=== PATIENT | male | born 1945 | race Caucasian/White ===

== ENCOUNTER 2023-04-17 02:42 | Observation (INO) | payer MEDICARE, OTHER, SELFPAY ==
[2023-04-17] VITALS (23 sets, daily range): BP systolic 134–233; BP diastolic 48–104; PULSE 55–80; RESP 13–25; TEMP 36.6–37.1; O2SAT 92–98; BMI 29.4
[2023-04-17 03:28] LABS: Alanine Aminotransferase 25 IU/L (<50); Albumin 4.3 g/dL (3.5-5.0); Albumin Globulin Ratio 1.6 (1.0-2.8); Alkaline Phosphatase 71 U/L (38-126); Aspartate Aminotransferase 23 IU/L (17-59); BUN Creatinine Ratio 19.8 (6-22); Bilirubin Total 0.8 mg/dL (0.2-1.3); Blood Urea Nitrogen 25 mg/dL (9-20); Calcium 8.7 mg/dL (8.4-10.2); Carbon Dioxide 21 mmol/L (22-32); Chloride 109 mmol/L (98-107); Estimated Glomerular Filt Rate 59 mL/min (>60); Globulin 2.7 g/dL (1.7-4.1); Glucose 170 mg/dL (80-110); HEMOLYSIS < 15 (0-50); Lipase 104 U/L (23-300); Potassium 4.2 mmol/L (3.4-5.1); Sodium 140 mmol/L (137-145)
[2023-04-17 03:33] LABS: Add Manual Diff / Slide Review NO; Basophils Absolute Auto 0 /uL (0-100); Basophils Percent Auto 0.4 % (0-2); Eosinophils Absolute Auto 200 /uL (0-450); Eosinophils Percent Auto 1.1 % (2-4); Hematocrit 39.7 % (41-53); Hemoglobin 13.6 g/dL (13.5-17.5); Lymphocytes Absolute Auto 1500 /uL (1100-4500); Lymphocytes Percent Auto 10.6 % (25-40); Mean Corpuscular HGB Conc 34.2 % (30-36); Monocytes Absolute Auto 800 /uL (0-900); Monocytes Percent Auto 6.1 % (3-14); Neutrophils Absolute Auto 11300 /uL (1500-7000); Neutrophils Percent Auto 81.8 % (50-75); Platelet Count 185 X10^3/uL (150-400); Red Blood Cell Count 4.84 X10^6/uL (4.5-5.9); Red Cell Distribution Width 15.5 % (11.6-14.8); White Blood Cell Count 13.8 X10^3/uL (4.5-11.0)
--- NOTE | 2023-04-17 04:06 | ED_ITS ---
HPI - Abdominal Pain <Julissaisiah Lara, DO - Last Filed: 04/18/23 03:55> General Chief Complaint: Abdominal Pain Stated Complaint: Abd pain vomitting. Time Seen by Provider: 04/17/23 03:49 Source: patient and EMS Mode of arrival: EMS Limitations: no limitations History of Present Illness HPI narrative: This is a 78-year-old male with history of atrial fibrillation, prior ablation on Eliquis, hypertension, dyslipidemia. Patient presents with complaint of abdominal pain and vomiting that started this evening he describes it as suprapubic lower in his pelvic region. Had fairly sudden onset of vomiting with this discomfort. States he had been stooling regularly before. In the department he is had a large amount of diarrheal stool. No black or blood. Patient is denying any flank pain. No fevers. No chest pain or shortness of breath. No passing out. He states he was sweaty when vomiting a lot. He does have a cardiac history with prior ablation and atrial fibrillation. States only surgeries been penile implant. Allergic to penicillin. Patient lives in [place] they recently flew here 2 days ago to visit the area. They used to live in this region. Patient states he went out to lunch earlier today with a friend. No other known sick contacts patient is aware. Patient is accompanied by his . Related Data Home Medications Medication Instructions Recorded Confirmed ACETAMINOPHEN/DIPHENHYDRAMINE 1 cap PO PRN ##0 10/21/12 04/17/23 (Tylenol Pm Ex-Strength Gelcap) melatonin 3 mg tablet 3 mg PO HS ##0 10/21/12 04/17/23 atenolol 50 mg tablet 50 mg PO Q DAY ##0 11/27/12 lisinopril 40 mg tablet 40 mg PO QDAY ##0 11/27/12 04/17/23 simvastatin 20 mg tablet (Zocor) 20 mg PO HS ##0 11/27/12 04/17/23 carvedilol 12.5 mg tablet 12.5 mg PO BID 04/17/23 04/17/23 glimepiride 2 mg tablet 2 mg PO DAILY 04/17/23 04/17/23 Previous Rx's Medication Instructions Recorded hydrochlorothiazide 25 mg tablet 12.5 mg PO QDAY 90 days ##0 10/22/12 lorazepam 1 mg tablet (Ativan) 1 mg PO HSP ##10 12/07/12 Allergies Allergy/AdvReac Type Severity Reaction Status Date / Time Penicillins Allergy Mild CHILD Verified 04/17/23 11:23 REACTION Review of Systems <Julissa Lara DO - Last Filed: 04/18/23 03:55> Review of Systems ROS Unobtainable: All systems reviewed & are unremarkable except as noted in HPI and below Patient History <Julissa Lara DO - Last Filed: 04/18/23 03:55> Social History household members: spouse Smoking Status: Never smoker alcohol intake: never Smoking Status: Never smoker Substance Use Type: does not use Exam <Julissa Lara DO - Last Filed: 04/18/23 03:55> Narrative Exam Narrative: GENERAL: Alert and oriented x three, obese male in moderate distress. Patient appears quite uncomfortable. HEENT: Head normocephalic, atraumatic, EOMI, pupils reactive, face symmetric, moist mucous membranes NECK: Supple, full range of motion CARDIOVASCULAR: Regular rate and rhythm without murmurs, rubs or gallops. RESPIRATORY: Breath sounds equal bilaterally, no wheezes rales or rhonchi. No tachypnea accessory muscle use. ABDOMEN: Soft, nontender. Normoactive bowel sounds all 4 quadrants. No guarding or rebound, rigidity, no mass : No CVA tenderness EXTREMITIES: Normal range of motion, no clubbing or edema. Neurovascularly intact NEUROLOGICAL: Cranial nerves II through XII grossly intact. Moving all extremities SKIN: Warm, dry, no petechiae, no rashes or lesions. Initial Vital Signs Initial Vital Signs: Vital Signs Temperature 98 F 04/17/23 02:57 Pulse Rate 55 L 04/17/23 02:57 Respiratory Rate 16 04/17/23 02:57 Blood Pressure 137/64 04/17/23 02:57 Pulse Oximetry 92 04/17/23 02:57 Oxygen Delivery Method Room Air 04/17/23 02:57 <Ra Fernandes DO - Last Filed: 04/17/23 17:12> Initial Vital Signs Initial Vital Signs: Vital Signs Temperature 98 F 04/17/23 02:57 Pulse Rate 55 L 04/17/23 02:57 Respiratory Rate 16 04/17/23 02:57 Blood Pressure 137/64 04/17/23 02:57 Pulse Oximetry 92 04/17/23 02:57 Oxygen Delivery Method Room Air 04/17/23 02:57 Course <Julissa Lara, - Last Filed: 04/18/23 03:55> Orders Ordered: ED Orders 04/18/23 05:00 Basic Metabolic Panel Routine Complete Blood Count AUTO DIFF Routine Acetaminophen (Acetaminophen 325 Mg Tablet) 650 mg PO Q6H PRN PRN Reason: Fever/Mild Pain (1-3) Hydrocodone Bitart/Acetaminophen (Hydrocodone/Acet 5/325 Tablet) 1 tab PO Q4H PRN PRN Reason: Pain, Moderate (4-6) Hydrocodone Bitart/Acetaminophen (Hydrocodone/Acet 5/325 Tablet) 2 tab PO Q4H PRN PRN Reason: Pain, Severe (7-10) Atorvastatin Calcium (Atorvastatin 20 Mg Tablet) 10 mg PO BEDTIME [facility] Last Admin: 04/17/23 20:32 Dose: 10 mg Documented By: ESTEFANIA Carvedilol (Carvedilol 12.5 Mg Tablet) 12.5 mg PO BID [facility] Last Admin: 04/17/23 20:32 Dose: 12.5 mg Documented By: Admin: 04/17/23 14:28 Dose: 12.5 mg Documented By: CRISTINA Dextrose (Dextrose 50 % In Water 25 Gm/50 Ml Syringe) 25 gm IV PRN PRN PRN Reason: Hypoglycemia Lactated Ringer's (Lactated Ringers) 1,000 mls @ 100 mls/hr IV CONT FAITH Stop: 05/17/23 21:19 Last Admin: 04/17/23 21:40 Dose: 100 mls/hr Documented By: Infusion: 04/17/23 21:40 Dose: 100 mls/hr Documented By: Admin: 04/17/23 11:45 Dose: 100 mls/hr Documented By: BHUPENDRA Insulin Human Lispro (Insulin Lispro 100 Unit/Ml 3ml Vial) 0 unit SUBCUT ACHS [facility]; Protocol Last Admin: 04/17/23 20:30 Dose: Not Given Documented By: Admin: 04/17/23 17:09 Dose: Not Given Documented By: BHUPENDRA Lisinopril (Lisinopril 20 Mg Tablet) 40 mg PO DAILY [facility] Last Admin: 04/17/23 14:27 Dose: 40 mg Documented By: CRISTINA Melatonin (Melatonin 3 Mg Tablet) 3 mg PO BEDTIME [facility] Last Admin: 04/17/23 20:32 Dose: 3 mg Documented By: ESTEFANIA Naloxone HCl (Naloxone 0.4 Mg/Ml Vial) 0.2 mg IV Q2MIN PRN PRN Reason: Opiate Reversal Ondansetron HCl (Ondansetron 4 Mg/2 Ml Inj) 4 mg IV Q8HR PRN PRN Reason: Nausea And Vomiting Pantoprazole Sodium (Pantoprazole Dr 20 Mg Tablet) 20 mg PO 0600 [facility] Discontinued Medications Hydromorphone HCl (Hydromorphone 1 Mg Inj) 1 mg IV NOW ONE Stop: 04/17/23 08:52 Last Admin: 04/17/23 08:57 Dose: 1 mg Documented By: AT Sodium Chloride (Normal Saline 0.9%) 1,000 mls @ 1,000 mls/hr IV BOLUS ONE Stop: 04/17/23 05:14 Last Infusion: 04/17/23 05:49 Dose: 0 mls/hr Documented By: Admin: 04/17/23 04:29 Dose: 1,000 mls/hr Documented By: GC Lactated Ringer's (Lactated Ringers) 1,000 mls @ 1,000 mls/hr IV BOLUS ONE Stop: 04/17/23 08:23 Last Infusion: 04/17/23 08:47 Dose: 0 mls/hr Documented By: Admin: 04/17/23 07:36 Dose: 1,000 mls/hr Documented By: AT Morphine Sulfate (Morphine 4 Mg/Ml Inj) 4 mg IV NOW ONE Stop: 04/17/23 04:16 Last Admin: 04/17/23 04:29 Dose: 4 mg Documented By: GC Morphine Sulfate (Morphine 4 Mg/Ml Inj) 4 mg IV NOW ONE Stop: 04/17/23 05:51 Last Admin: 04/17/23 06:00 Dose: 4 mg Documented By: KIERA Ondansetron HCl (Ondansetron 4 Mg Odt) 4 mg PO NOW PRN PRN Reason: Nausea And Vomiting Ondansetron HCl (Ondansetron 4 Mg/2 Ml Inj) 4 mg IV NOW PRN PRN Reason: Nausea And Vomiting Last Admin: 04/17/23 04:29 Dose: 4 mg Documented By: KIERA Pantoprazole Sodium (Pantoprazole 40 Mg Vial) 40 mg IV NOW ONE Stop: 04/17/23 07:26 Last Admin: 04/17/23 07:36 Dose: 40 mg Documented By: AT Vital Signs Vital signs: Vital Signs - 8 hr 04/17/23 09:30 04/17/23 09:31 04/17/23 09:31 Pulse Rate 76 72 Respiratory Rate 16 15 Blood Pressure 197/85 H Pulse Oximetry 92 96 04/17/23 10:00 04/17/23 10:00 Pulse Rate 74 Respiratory Rate 13 Blood Pressure 158/70 H Pulse Oximetry 94 <Ra Fernandes, - Last Filed: 04/17/23 17:12> Orders Ordered: ED Orders 04/18/23 05:00 Basic Metabolic Panel Routine Complete Blood Count AUTO DIFF Routine Acetaminophen (Acetaminophen 325 Mg Tablet) 650 mg PO Q6H PRN PRN Reason: Fever/Mild Pain (1-3) Hydrocodone Bitart/Acetaminophen (Hydrocodone/Acet 5/325 Tablet) 1 tab PO Q4H PRN PRN Reason: Pain, Moderate (4-6) Hydrocodone Bitart/Acetaminophen (Hydrocodone/Acet 5/325 Tablet) 2 tab PO Q4H PRN PRN Reason: Pain, Severe (7-10) Atorvastatin Calcium (Atorvastatin 20 Mg Tablet) 10 mg PO BEDTIME [facility] Last Admin: 04/17/23 20:32 Dose: 10 mg Documented By: ESTEFANIA Carvedilol (Carvedilol 12.5 Mg Tablet) 12.5 mg PO BID [facility] Last Admin: 04/17/23 20:32 Dose: 12.5 mg Documented By: Admin: 04/17/23 14:28 Dose: 12.5 mg Documented By: CRISTINA Dextrose (Dextrose 50 % In Water 25 Gm/50 Ml Syringe) 25 gm IV PRN PRN PRN Reason: Hypoglycemia Lactated Ringer's (Lactated Ringers) 1,000 mls @ 100 mls/hr IV CONT [facility] Stop: 05/17/23 21:19 Last Admin: 04/17/23 21:40 Dose: 100 mls/hr Documented By: Infusion: 04/17/23 21:40 Dose: 100 mls/hr Documented By: Admin: 04/17/23 11:45 Dose: 100 mls/hr Documented By: BHUPENDRA Insulin Human Lispro (Insulin Lispro 100 Unit/Ml 3ml Vial) 0 unit SUBCUT ACHS [facility]; Protocol Last Admin: 04/17/23 20:30 Dose: Not Given Documented By: Admin: 04/17/23 17:09 Dose: Not Given Documented By: BHUPENDRA Lisinopril (Lisinopril 20 Mg Tablet) 40 mg PO DAILY [facility] Last Admin: 04/17/23 14:27 Dose: 40 mg Documented By: CIRSTINA Melatonin (Melatonin 3 Mg Tablet) 3 mg PO BEDTIME [facility] Last Admin: 04/17/23 20:32 Dose: 3 mg Documented By: ESTEFANIA Naloxone HCl (Naloxone 0.4 Mg/Ml Vial) 0.2 mg IV Q2MIN PRN PRN Reason: Opiate Reversal Ondansetron HCl (Ondansetron 4 Mg/2 Ml Inj) 4 mg IV Q8HR PRN PRN Reason: Nausea And Vomiting Pantoprazole Sodium (Pantoprazole Dr 20 Mg Tablet) 20 mg PO 0600 [facility] Discontinued Medications Hydromorphone HCl (Hydromorphone 1 Mg Inj) 1 mg IV NOW ONE Stop: 04/17/23 08:52 Last Admin: 04/17/23 08:57 Dose: 1 mg Documented By: AT Sodium Chloride (Normal Saline 0.9%) 1,000 mls @ 1,000 mls/hr IV BOLUS ONE Stop: 04/17/23 05:14 Last Infusion: 04/17/23 05:49 Dose: 0 mls/hr Documented By: Admin: 04/17/23 04:29 Dose: 1,000 mls/hr Documented By: GC Lactated Ringer's (Lactated Ringers) 1,000 mls @ 1,000 mls/hr IV BOLUS ONE Stop: 04/17/23 08:23 Last Infusion: 04/17/23 08:47 Dose: 0 mls/hr Documented By: Admin: 04/17/23 07:36 Dose: 1,000 mls/hr Documented By: AT Morphine Sulfate (Morphine 4 Mg/Ml Inj) 4 mg IV NOW ONE Stop: 04/17/23 04:16 Last Admin: 04/17/23 04:29 Dose: 4 mg Documented By: GC Morphine Sulfate (Morphine 4 Mg/Ml Inj) 4 mg IV NOW ONE Stop: 04/17/23 05:51 Last Admin: 04/17/23 06:00 Dose: 4 mg Documented By: GC Ondansetron HCl (Ondansetron 4 Mg Odt) 4 mg PO NOW PRN PRN Reason: Nausea And Vomiting Ondansetron HCl (Ondansetron 4 Mg/2 Ml Inj) 4 mg IV NOW PRN PRN Reason: Nausea And Vomiting Last Admin: 04/17/23 04:29 Dose: 4 mg Documented By: GC Pantoprazole Sodium (Pantoprazole 40 Mg Vial) 40 mg IV NOW ONE Stop: 04/17/23 07:26 Last Admin: 04/17/23 07:36 Dose: 40 mg Documented By: AT Vital Signs Vital signs: Vital Signs - 8 hr 04/17/23 09:30 04/17/23 09:31 04/17/23 09:31 Pulse Rate 76 72 Respiratory Rate 16 15 Blood Pressure 197/85 H Pulse Oximetry 92 96 04/17/23 10:00 04/17/23 10:00 Pulse Rate 74 Respiratory Rate 13 Blood Pressure 158/70 H Pulse Oximetry 94 MDM - Abdominal Pain <Julissa Lara DO - Last Filed: 04/18/23 03:55> Lab Data 04/17/23 02:49 04/17/23 02:49 Labs: Lab Results 04/17/23 04/17/23 04/17/23 Range/Units 02:49 02:49 02:49 WBC 13.8 H (4.5-11.0) X10^3/uL RBC 4.84 (4.5-5.9) X10^6/uL Hgb 13.6 (13.5-17.5) g/dL Hct 39.7 L (41-53) % MCV 82.0 (80-100) fL MCH 28.0 (26-34) PG MCHC 34.2 (30-36) % RDW 15.5 H (11.6-14.8) % Plt Count 185 (150-400) X10^3/uL Neut % (Auto) 81.8 H (50-75) % Lymph % (Auto) 10.6 L (25-40) % [place] % (Auto) 6.1 (3-14) % Eos % (Auto) 1.1 L (2-4) % Baso % (Auto) 0.4 (0-2) % Neut # (Auto) 58621 H (3321-1978) /uL Lymph # (Auto) 1500 (0984-7968) /uL [place] # (Auto) 800 (0-900) /uL Eos # (Auto) 200 (0-450) /uL Baso # (Auto) 0 (0-100) /uL Sodium 140 (137-145) mmol/L Potassium 4.2 (3.4-5.1) mmol/L Chloride 109 H (98-107) mmol/L Carbon Dioxide 21 L (22-32) mmol/L BUN 25 H (9-20) mg/dL Creatinine 1.26 H (0.66-1.25) mg/dL Estimated GFR 59 L (>60) mL/min BUN/Creatinine Ratio 19.8 (6-22) Glucose 170 H (80-110) mg/dL Lactate 1.2 (0.7-2.1) mmol/L Calcium 8.7 (8.4-10.2) mg/dL Total Bilirubin 0.8 (0.2-1.3) mg/dL AST 23 (17-59) IU/L ALT 25 (<50) IU/L Alkaline Phosphatase 71 (38-126) U/L Total Protein 7.0 (6.3-8.2) g/dL Albumin 4.3 (3.5-5.0) g/dL Globulin 2.7 (1.7-4.1) g/dL Albumin/Globulin Ratio 1.6 (1.0-2.8) Lipase 104 (23-300) U/L Procalcitonin (<0.5) ng/mL Stl C. cayetanensis PCR (Not Detect) Stool Rotavirus (PCR) (Not Detect) Stool Adenovirus (PCR) (Not Detect) Stool Astrovirus (PCR) (Not Detect) Stool Cryptosporidium PCR (Not Detect) Stl E.coli Shiga Tox PCR (Not Detect) St Sh/Enteroin Ecoli PCR (Not Detect) Stool E coli O157 PCR Stl Enterotoxigenic E PCR (Not Detect) Stool EPEC (PCR) (Not Detect) Stl E. histolytica PCR (Not Detect) Stool Giardia Lamblia PCR (Not Detect) Stool Sapovirus (PCR) (Not Detect) Stl P. shigelloides PCR (Not Detect) St Y.enterocolitica PCR (Not Detect) Stool Vibrio (PCR) (Not Detect) Stl Vibrio cholerae PCR (Not Detect) Stl Enteroaggr Ecoli PCR (Not Detect) Stl Norovirus GI/GII PCR (Not Detect) Campylobacter (PCR) (Not Detect) C. difficile Tox (PCR) (Not Detect) Salmonella (PCR) (Not Detect) 04/17/23 04/17/23 Range/Units 02:49 08:37 WBC (4.5-11.0) X10^3/uL RBC (4.5-5.9) X10^6/uL Hgb (13.5-17.5) g/dL Hct (41-53) % MCV (80-100) fL MCH (26-34) PG MCHC (30-36) % RDW (11.6-14.8) % Plt Count (150-400) X10^3/uL Neut % (Auto) (50-75) % Lymph % (Auto) (25-40) % [place] % (Auto) (3-14) % Eos % (Auto) (2-4) % Baso % (Auto) (0-2) % Neut # (Auto) (8492-2936) /uL Lymph # (Auto) (4729-2976) /uL [place] # (Auto) (0-900) /uL Eos # (Auto) (0-450) /uL Baso # (Auto) (0-100) /uL Sodium (137-145) mmol/L Potassium (3.4-5.1) mmol/L Chloride (98-107) mmol/L Carbon Dioxide (22-32) mmol/L BUN (9-20) mg/dL Creatinine (0.66-1.25) mg/dL Estimated GFR (>60) mL/min BUN/Creatinine Ratio (6-22) Glucose (80-110) mg/dL Lactate (0.7-2.1) mmol/L Calcium (8.4-10.2) mg/dL Total Bilirubin (0.2-1.3) mg/dL AST (17-59) IU/L ALT (<50) IU/L Alkaline Phosphatase (38-126) U/L Total Protein (6.3-8.2) g/dL Albumin (3.5-5.0) g/dL Globulin (1.7-4.1) g/dL Albumin/Globulin Ratio (1.0-2.8) Lipase (23-300) U/L Procalcitonin 0.04 (<0.5) ng/mL Stl C. cayetanensis PCR Not detected (Not Detect) Stool Rotavirus (PCR) Not detected (Not Detect) Stool Adenovirus (PCR) Not detected (Not Detect) Stool Astrovirus (PCR) Not detected (Not Detect) Stool Cryptosporidium PCR Not detected (Not Detect) Stl E.coli Shiga Tox PCR Not detected (Not Detect) St Sh/Enteroin Ecoli PCR Not detected (Not Detect) Stool E coli O157 PCR Not Reportable Stl Enterotoxigenic E PCR Not detected (Not Detect) Stool EPEC (PCR) Detected H (Not Detect) Stl E. histolytica PCR Not detected (Not Detect) Stool Giardia Lamblia PCR Not detected (Not Detect) Stool Sapovirus (PCR) Not detected (Not Detect) Stl P. shigelloides PCR Not detected (Not Detect) St Y.enterocolitica PCR Not detected (Not Detect) Stool Vibrio (PCR) Not detected (Not Detect) Stl Vibrio cholerae PCR Not detected (Not Detect) Stl Enteroaggr Ecoli PCR Not detected (Not Detect) Stl Norovirus GI/GII PCR Not detected (Not Detect) Campylobacter (PCR) Not detected (Not Detect) C. difficile Tox (PCR) Not detected (Not Detect) Salmonella (PCR) Not detected (Not Detect) Point of care testing: Urine Dip Bedside Urine Glucose Negative Bedside Urine Bilirubin - Negative Bedside Urine Ketone - Negative Urine Specific [place] 1.015 Bedside Urine Occult Blood - Negative Bedside Urine pH 5.5 Bedside Urine Protein - Negative Bedside Urine Urobilinogen - Negative Bedside Urine Nitrite - Negative Bedside Urine Leukocytes - Negative Esterase Imaging Data CT scan - abdomen/pelvis: Radiologist's Impression: Lobulated heterogeneous enlarged prostate. Thickened colon particularly mid transverse to distal descending where there is pericolonic stranding compatible with colitis. ECG Data Attestation: I personally reviewed and interpreted this ECG as follows: [facility] Narrative Medical decision making narrative: This is a 78-year-old male with fairly sudden onset of vomiting, lower pelvic pain now has developed diarrhea. Patient is afebrile, has a white count of 13, platelets are appropriate hemoglobin is 13. No black or bloody stool. Creatinine is 1.26 no priors for baseline. CO2 is 21, BUN 25, glucose 170 with LFTs otherwise being appropriate. Plan to add on protocol, lactate and cultures as CO2 is low. Patient is bradycardic but is on medication that would blunt his cardiac response. CT abdomen pelvis to evaluate for infection, diverticulitis, partial bowel obstruction versus other causes. He has had recent travel infectious causes are also potential. CT abdomen pelvis, shows thickened colon particularly mid transverse to distal descending with pericolonic stranding compatible with colitis. Lobulated heterogenous and large prostate. Discussed with patient. Discussed follow-up with prostate. He states he does get his prostate checked and PSAs regularly but discussed he should probably sure this imaging and information with his physician. Patient given fluids, pain medication and antinausea medication: Feeling somewhat improved but still hurting. Attempting oral challenge. [0700] (Dom) Patient received in sign out from [poppy]. I have reviewed the clinical course and performed an independent history and physical exam. Patient continues to have pain in his now receiving his 3rd round of IV pain medications. Furthermore he is not tolerating orals and for these reasons the patient is an appropriate candidate for hospitalization. <Ra Fernandes, DO - Last Filed: 04/17/23 17:12> Lab Data Labs: Lab Results 04/17/23 04/17/23 04/17/23 Range/Units 02:49 02:49 02:49 WBC 13.8 H (4.5-11.0) X10^3/uL RBC 4.84 (4.5-5.9) X10^6/uL Hgb 13.6 (13.5-17.5) g/dL Hct 39.7 L (41-53) % MCV 82.0 (80-100) fL MCH 28.0 (26-34) PG MCHC 34.2 (30-36) % RDW 15.5 H (11.6-14.8) % Plt Count 185 (150-400) X10^3/uL Neut % (Auto) 81.8 H (50-75) % Lymph % (Auto) 10.6 L (25-40) % [place] % (Auto) 6.1 (3-14) % Eos % (Auto) 1.1 L (2-4) % Baso % (Auto) 0.4 (0-2) % Neut # (Auto) 14671 H (1071-4800) /uL Lymph # (Auto) 1500 (5296-2436) /uL [place] # (Auto) 800 (0-900) /uL Eos # (Auto) 200 (0-450) /uL Baso # (Auto) 0 (0-100) /uL Sodium 140 (137-145) mmol/L Potassium 4.2 (3.4-5.1) mmol/L Chloride 109 H (98-107) mmol/L Carbon Dioxide 21 L (22-32) mmol/L BUN 25 H (9-20) mg/dL Creatinine 1.26 H (0.66-1.25) mg/dL Estimated GFR 59 L (>60) mL/min BUN/Creatinine Ratio 19.8 (6-22) Glucose 170 H (80-110) mg/dL Lactate 1.2 (0.7-2.1) mmol/L Calcium 8.7 (8.4-10.2) mg/dL Total Bilirubin 0.8 (0.2-1.3) mg/dL AST 23 (17-59) IU/L ALT 25 (<50) IU/L Alkaline Phosphatase 71 (38-126) U/L Total Protein 7.0 (6.3-8.2) g/dL Albumin 4.3 (3.5-5.0) g/dL Globulin 2.7 (1.7-4.1) g/dL Albumin/Globulin Ratio 1.6 (1.0-2.8) Lipase 104 (23-300) U/L Procalcitonin (<0.5) ng/mL Stl C. cayetanensis PCR (Not Detect) Stool Rotavirus (PCR) (Not Detect) Stool Adenovirus (PCR) (Not Detect) Stool Astrovirus (PCR) (Not Detect) Stool Cryptosporidium PCR (Not Detect) Stl E.coli Shiga Tox PCR (Not Detect) St Sh/Enteroin Ecoli PCR (Not Detect) Stool E coli O157 PCR Stl Enterotoxigenic E PCR (Not Detect) Stool EPEC (PCR) (Not Detect) Stl E. histolytica PCR (Not Detect) Stool Giardia Lamblia PCR (Not Detect) Stool Sapovirus (PCR) (Not Detect) Stl P. shigelloides PCR (Not Detect) St Y.enterocolitica PCR (Not Detect) Stool Vibrio (PCR) (Not Detect) Stl Vibrio cholerae PCR (Not Detect) Stl Enteroaggr Ecoli PCR (Not Detect) Stl Norovirus GI/GII PCR (Not Detect) Campylobacter (PCR) (Not Detect) C. difficile Tox (PCR) (Not Detect) Salmonella (PCR) (Not Detect) 04/17/23 04/17/23 Range/Units 02:49 08:37 WBC (4.5-11.0) X10^3/uL RBC (4.5-5.9) X10^6/uL Hgb (13.5-17.5) g/dL Hct (41-53) % MCV (80-100) fL MCH (26-34) PG MCHC (30-36) % RDW (11.6-14.8) % Plt Count (150-400) X10^3/uL Neut % (Auto) (50-75) % Lymph % (Auto) (25-40) % [place] % (Auto) (3-14) % Eos % (Auto) (2-4) % Baso % (Auto) (0-2) % Neut # (Auto) (9562-1650) /uL Lymph # (Auto) (0316-1384) /uL [place] # (Auto) (0-900) /uL Eos # (Auto) (0-450) /uL Baso # (Auto) (0-100) /uL Sodium (137-145) mmol/L Potassium (3.4-5.1) mmol/L Chloride (98-107) mmol/L Carbon Dioxide (22-32) mmol/L BUN (9-20) mg/dL Creatinine (0.66-1.25) mg/dL Estimated GFR (>60) mL/min BUN/Creatinine Ratio (6-22) Glucose (80-110) mg/dL Lactate (0.7-2.1) mmol/L Calcium (8.4-10.2) mg/dL Total Bilirubin (0.2-1.3) mg/dL AST (17-59) IU/L ALT (<50) IU/L Alkaline Phosphatase (38-126) U/L Total Protein (6.3-8.2) g/dL Albumin (3.5-5.0) g/dL Globulin (1.7-4.1) g/dL Albumin/Globulin Ratio (1.0-2.8) Lipase (23-300) U/L Procalcitonin 0.04 (<0.5) ng/mL Stl C. cayetanensis PCR Not detected (Not Detect) Stool Rotavirus (PCR) Not detected (Not Detect) Stool Adenovirus (PCR) Not detected (Not Detect) Stool Astrovirus (PCR) Not detected (Not Detect) Stool Cryptosporidium PCR Not detected (Not Detect) Stl E.coli Shiga Tox PCR Not detected (Not Detect) St Sh/Enteroin Ecoli PCR Not detected (Not Detect) Stool E coli O157 PCR Not Reportable Stl Enterotoxigenic E PCR Not detected (Not Detect) Stool EPEC (PCR) Detected H (Not Detect) Stl E. histolytica PCR Not detected (Not Detect) Stool Giardia Lamblia PCR Not detected (Not Detect) Stool Sapovirus (PCR) Not detected (Not Detect) Stl P. shigelloides PCR Not detected (Not Detect) St Y.enterocolitica PCR Not detected (Not Detect) Stool Vibrio (PCR) Not detected (Not Detect) Stl Vibrio cholerae PCR Not detected (Not Detect) Stl Enteroaggr Ecoli PCR Not detected (Not Detect) Stl Norovirus GI/GII PCR Not detected (Not Detect) Campylobacter (PCR) Not detected (Not Detect) C. difficile Tox (PCR) Not detected (Not Detect) Salmonella (PCR) Not detected (Not Detect) Point of care testing: Urine Dip Bedside Urine Glucose Negative Bedside Urine Bilirubin - Negative Bedside Urine Ketone - Negative Urine Specific [place] 1.015 Bedside Urine Occult Blood - Negative Bedside Urine pH 5.5 Bedside Urine Protein - Negative Bedside Urine Urobilinogen - Negative Bedside Urine Nitrite - Negative Bedside Urine Leukocytes - Negative Esterase MDM Narrative Medical decision making narrative: This is a 78-year-old male with fairly sudden onset of vomiting, lower pelvic pain now has developed diarrhea. Patient is afebrile, has a white count of 13, platelets are appropriate hemoglobin is 13. No black or bloody stool. Creatinine is 1.26 no priors for baseline. CO2 is 21, BUN 25, glucose 170 with LFTs otherwise being appropriate. Plan to add on protocol, lactate and cultures as CO2 is low. Patient is bradycardic but is on medication that would blunt his cardiac response. CT abdomen pelvis to evaluate for infection, diverticulitis, partial bowel obstruction versus other causes. He has had recent travel infectious causes are also potential. CT abdomen pelvis, shows thickened colon particularly mid transverse to distal descending with pericolonic stranding compatible with colitis. Lobulated heterogenous and large prostate. Discussed with patient. Discussed follow-up with prostate. He states he does get his prostate checked and PSAs regularly but discussed he should probably sure this imaging and information with his physician. Patient given fluids, pain medication and antinausea medication: Feeling somewhat improved but still hurting. [0700] (Dom) Patient received in sign out from [poppy]. I have reviewed the clinical course and performed an independent history and physical exam. Patient continues to have pain in his now receiving his 3rd round of IV pain medications. Furthermore he is not tolerating orals and for these reasons the patient is an appropriate candidate for hospitalization. Discharge Plan Departure Patient Disposition: Admitted as Observation Clinical Impression: Colitis, Abdominal pain, Vomiting Admit Date/Time: 04/17/23 10:12 Admit Provider: Amita Suarez
--- NOTE | 2023-04-17 04:15 | DI.CT.S_ITS ---
PROCEDURE: CT ABDOMEN PELVIS W CON INDICATIONS: suprapubic abd pain, v, diarrhea TECHNIQUE: After the administration of IV contrast, axial sections were acquired from the lung bases to the pubic symphysis. Coronal and sagittal reformats were performed. For radiation dose reduction, the following was used: automated exposure control, adjustment of mA and/or kV according to patient size. COMPARISON: None. FINDINGS: Image quality: Excellent. Lung bases: Scars and in the atelectasis in lingula. Small hiatal hernia and mild concentric thickening at the gastroesophageal junction. A calcified granuloma in the right lung base. Heart: No significant findings. ABDOMEN: Liver: Normal size. Mild hepatic steatosis. Gallbladder: Unremarkable. Biliary ducts: Unremarkable. Pancreas: Unremarkable. Spleen: Unremarkable. Adrenal Glands: Unremarkable. Kidneys and Ureters: Normal size and symmetrical enhancement. Small cortical low-density nodules bilaterally are most likely renal cysts. Stomach and Bowel: Stomach, small bowel loops, and colon are normal in caliber. There is diffuse colonic wall thickening involving the transverse colon, splenic flexure, descending and sigmoid colon consistent with colitis. Peritoneum: No abnormal intraperitoneal fluid. No free air. Ventral Wall: No hernia. Abdominal Nodes: No retroperitoneal or mesenteric adenopathy by size criteria. Vessels: Aorta and inferior vena cava are normal in size. Moderate atherosclerotic calcifications. PELVIS: Pelvic Organs: Prostate is enlarged. 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 Bladder: Unremarkable. Pelvic Nodes: No enlarged lymph nodes. Miscellaneous: Small fat containing right inguinal hernia. Bones: Unremarkable. IMPRESSION: 1. Diffuse colitis involving the transverse colon, splenic flexure, descending and sigmoid colon. No free air or abscess. 2. Small hiatal hernia. There is mild concentric thickening of the distal esophagus at the gastroesophageal junction. Consider esophagram or EGD for follow-up. 3. Bilateral renal cortical cysts. No stones or hydronephrosis. 4. Enlarged prostate. No significant discrepancy with the director of business applications radiology preliminary report. Dictated by: Momo Rawls M.D. on 04/17/2023 at 7:57 Approved by: Momo Rawls M.D. on 04/17/2023 at 8:03
[2023-04-17 04:26] LABS: Lactate (Lactic Acid) 1.2 mmol/L (0.7-2.1)
[2023-04-17] MEDS: MORPHINE 4 MG/ML INJ IV ×2 (04:29→06:00)
[2023-04-17] MEDS: SODIUM CHLORIDE 0.9% 1,000 ML 1000 ML IV (04:29)
[2023-04-17] MEDS: ONDANSETRON 4 MG/2 ML INJ IV (04:29)
[2023-04-17 04:43] LABS: Procalcitonin 0.04 ng/mL (<0.5)
[2023-04-17] MEDS: PANTOPRAZOLE 40 MG VIAL IV (07:36)
[2023-04-17] MEDS: LACTATED RINGERS 1,000 ML 1000 ML IV (07:36)
[2023-04-17] MEDS: HYDROMORPHONE 1 MG INJ IV (08:57)
[2023-04-17 10:20] LABS: Adenovirus F 40/41 Not Detected (Not Detect); Astrovirus Not Detected (Not Detect); Campylobacter Not Detected (Not Detect); Clostridium difficile toxin AB Not Detected (Not Detect); Cryptosporidium Not Detected (Not Detect); Cyclospora cayetanensis Not Detected (Not Detect); Entamoeba histolytica Not Detected (Not Detect); Enteroaggregative E.coli Not Detected (Not Detect); Enteropathogenic E.coli Detected (Not Detect); Enterotoxigenic E.coli It/st Not Detected (Not Detect); Giardia lamblia Not Detected (Not Detect); Norovirus GI/GII Not Detected (Not Detect); Plesiomonsa shigelloides Not Detected (Not Detect); Rotavirus A Not Detected (Not Detect); Salmonella Not Detected (Not Detect); Sapovirus Not Detected (Not Detect); Shiga-like toxin-prod E.coli Not Detected (Not Detect); Shigella/Enteroinvasive E.coli Not Detected (Not Detect); Vibrio Not Detected (Not Detect); Vibrio cholerae Not Detected (Not Detect); Yersinia enterocolitica Not Detected (Not Detect)
--- NOTE | 2023-04-17 11:05 | PC.NURSE ---
Per prior shift report, PO challenge was initiated. Upon taking over, pt reported vomitting and diarrhea immediately after, Dr. Fernandes notified. Pt reports continuous bowel movements and abdominal discomfort, states with the slightest movement he has a bowel movement. Bowel movements are liquid and loose, brown in color. Pt reports too uncomfortable to sit up on commode, multiple bed changes and amira care provided. Pt intermittently falling asleep.
[2023-04-17] MEDS: LACTATED RINGERS 1,000 ML 100 ML IV ×2 (11:45→21:40)
--- NOTE | 2023-04-17 12:08 | PC.NURSE ---
Addendum entered by Mayte Treviño R.N. 04/17/23 15:29: Patient had a lose bowel movement in the commode. Explained to patient that he needs to use the bathroom or bedside commode when he needs to have a bowel movement. He is more than capable of doing this. Will have this discussion again when patient has to use the bathroom. If he has an accident, then we will clean him up. Original Note: Assess- Patient is alert and oriented x4. He has not had a lose stool since getting up to his room at 1110. He is lying on his left side. Drapes dimmed and he is resting comfortably. LR infusing at 100cc/hr. Patient denies nausea or emesis at this time. Will recheck on patient in an hour.
--- NOTE | 2023-04-17 12:33 | P.HP_ITS ---
History of Present Illness History of Present Illness Chief complaint: Abd pain vomitting. Narrative: 78-year-old gentleman with hypertension, hyperlipidemia, diabetes mellitus type 2 on oral medications, history of atrial fibrillation with previous ablation on chronic anticoagulation who presented to the emergency department with acute onset of lower abdominal pain, nausea and vomiting. Reports he is visiting from [place] and was out to breakfast and lunch both with a friend. He states after breakfast he and his friend walked the beach and he felt fine. They subsequently went for lunch and had burgers and fries. He states he again felt fine until last evening when he developed acute onset of severe lower abdominal pain. States whenever his abdomen cramped he had emesis. Ultimately presented to the emergency department for further evaluation. States he did not have any diarrhea until he got to the emergency department. He states he had significant amounts of diarrhea after arrival. Anytime he took in fluids, it seemed to trigger further diarrhea. He had not noticed any blood in his stool. He can not recall where he went to eat, but notes his has reached out to his friend to see if the friend is ill. In the emergency department, he received Zofran x2 doses, 1 L of normal saline, 1 L of lactated Ringer's, 2 doses of IV morphine 4 mg and 1 dose of Dilaudid 1 mg. He additionally received IV Protonix 40 mg. Earlier this morning, blood pressures were up to 233/104 which was felt to be secondary to pain. Vital signs have otherwise been stable. He has been afebrile. White blood cell count was 13.8, hemoglobin 13.6, hematocrit 39.7, platelets 185. Chemistry panel reveals sodium 140, potassium 4.2, chloride 109, bicarb 21, BUN 25, creatinine 1.26, glucose 170. LFTs were within normal limits. Lactate was normal at 1.2. Lipase 104. Procalcitonin 0.04. Stool studies were positive for enteropathogenic E coli. Abdominal pelvic CT revealed diffuse colitis involving the transverse colon, splenic flexure, descending and sigmoid colon. No free air or abscess. There was a small hiatal hernia. Mild concentric thickening of the distal esophagus at the GE junction. Recommendation for esophagram or EGD for follow-up. Enlarged prostate was noted. Bilateral renal cortical cysts without stones or hydronephrosis was noted Due to ongoing difficulties with pain and diarrhea, admission was recommended. Patient reports currently he is feeling very thirsty, he is having some difficulty remembering details from the last 24 hours, but denies any significant abdominal pain. [facility] Social History household members: spouse Smoking Status: Never smoker alcohol intake: never Comment: Past medical history: Atrial fibrillation status post ablation Chronic anticoagulation with Eliquis Hypertension Hyperlipidemia Diabetes mellitus type 2 Family history: He reports most of his father siblings as well as his father secondary to malignancies Mother had diabetes and from heart disease Social history: Patient and his used to live in the [facility] but relocated to [place] in 2016. They are here visiting friends. He reports a remote history of tobacco use. No significant alcohol use. Meds Home Medications and Allergies Home Medications Medication Instructions Recorded Confirmed Type ACETAMINOPHEN/DIPHENHYDRAMINE 1 cap PO PRN ##0 10/21/12 04/17/23 History (Tylenol Pm Ex-Strength Gelcap) melatonin 3 mg tablet 3 mg PO HS ##0 10/21/12 04/17/23 History hydrochlorothiazide 25 mg tablet 12.5 mg PO QDAY 90 days ##0 10/22/12 Rx atenolol 50 mg tablet 50 mg PO Q DAY ##0 11/27/12 History lisinopril 40 mg tablet 40 mg PO QDAY ##0 11/27/12 04/17/23 History simvastatin 20 mg tablet (Zocor) 20 mg PO HS ##0 11/27/12 04/17/23 History lorazepam 1 mg tablet (Ativan) 1 mg PO HSP ##10 12/07/12 Rx carvedilol 12.5 mg tablet 12.5 mg PO BID 04/17/23 04/17/23 History glimepiride 2 mg tablet 2 mg PO DAILY 04/17/23 04/17/23 History Allergies Allergy/AdvReac Type Severity Reaction Status Date / Time Penicillins Allergy Mild CHILD Verified 04/17/23 11:23 REACTION Review of Systems Review of Systems Narrative: All other systems were reviewed negative Exam Vital Signs (past 8 hours): - 04/17/23 07:00 04/17/23 07:01 04/17/23 07:01 Temperature Pulse Rate 71 78 Respiratory Rate 18 19 Blood Pressure 233/104 H Pulse Oximetry 96 97 Oxygen Delivery Method Room Air Oxygen Flow Rate 04/17/23 07:30 04/17/23 07:31 04/17/23 07:31 Temperature Pulse Rate 69 69 Respiratory Rate 17 17 Blood Pressure 218/84 H Pulse Oximetry 96 97 Oxygen Delivery Method Oxygen Flow Rate 04/17/23 07:42 04/17/23 07:42 04/17/23 08:00 Temperature Pulse Rate 80 72 Respiratory Rate 19 20 Blood Pressure 223/100 H Pulse Oximetry 97 97 Oxygen Delivery Method Room Air Oxygen Flow Rate 04/17/23 08:30 04/17/23 08:34 04/17/23 09:00 Temperature Pulse Rate 78 76 75 Respiratory Rate 17 25 H 18 Blood Pressure Pulse Oximetry 98 97 98 Oxygen Delivery Method Oxygen Flow Rate 04/17/23 09:01 04/17/23 09:01 04/17/23 09:30 Temperature Pulse Rate 74 76 Respiratory Rate 16 16 Blood Pressure 213/91 H Pulse Oximetry 97 92 Oxygen Delivery Method Room Air Oxygen Flow Rate 04/17/23 09:31 04/17/23 09:31 04/17/23 10:00 Temperature Pulse Rate 72 Respiratory Rate 15 Blood Pressure 197/85 H 158/70 H Pulse Oximetry 96 Oxygen Delivery Method Oxygen Flow Rate 04/17/23 10:00 04/17/23 10:30 04/17/23 10:30 Temperature Pulse Rate 74 73 Respiratory Rate 13 14 Blood Pressure 152/67 H Pulse Oximetry 94 95 Oxygen Delivery Method Room Air Oxygen Flow Rate 04/17/23 11:27 Temperature 98.3 F Pulse Rate 75 Respiratory Rate 18 Blood Pressure 138/60 Pulse Oximetry 98 Oxygen Delivery Method Oxygen Flow Rate 0 Oxygen Delivery Method Room Air Oxygen Flow Rate 0 Narrative Exam Narrative: GEN: Moderately ill-appearing elderly male, Alert and oriented x3, somewhat forgetful, no acute distress HEENT: Normocephalic, face symmetric, pupils equal round reactive to light, extraocular movements intact, sclerae anicteric, conjunctiva clear, nares patent, oropharynx reveals an intact soft and hard palate with moist mucous membranes, dentition is fair NECK: Supple, no lymphadenopathy, thyroid without enlargement or nodularity, carotids no bruits CHEST: Respiratory excursions symmetric, clear to auscultation bilaterally CV: Regular rate and rhythm, no murmurs, rubs, gallops, PMI can not be palpated ABD: Soft, nontender, nondistended, bowel sounds present in all 4 quadrants, body habitus limits exam EXTR: Warm, well perfused, no clubbing/cyanosis/edema SKIN: Warm and dry, without rash, very durant NEURO: Alert and oriented x3, grossly intact PSYCH: Mood and affect is within normal limits, judgment and insight are appropriate Objective Labs 04/17/23 02:49 04/17/23 02:49 Labs: Laboratory Results - last 24 hr 04/17/23 04/17/23 04/17/23 02:49 02:49 02:49 WBC 13.8 H RBC 4.84 Hgb 13.6 Hct 39.7 L MCV 82.0 MCH 28.0 MCHC 34.2 RDW 15.5 H Plt Count 185 Neut % (Auto) 81.8 H Lymph % (Auto) 10.6 L [place] % (Auto) 6.1 Eos % (Auto) 1.1 L Baso % (Auto) 0.4 Neut # (Auto) 17963 H Lymph # (Auto) 1500 [place] # (Auto) 800 Eos # (Auto) 200 Baso # (Auto) 0 Sodium 140 Potassium 4.2 Chloride 109 H Carbon Dioxide 21 L BUN 25 H Creatinine 1.26 H Estimated GFR 59 L BUN/Creatinine Ratio 19.8 Glucose 170 H Lactate 1.2 Calcium 8.7 Total Bilirubin 0.8 AST 23 ALT 25 Alkaline Phosphatase 71 Total Protein 7.0 Albumin 4.3 Globulin 2.7 Albumin/Globulin Ratio 1.6 Lipase 104 Procalcitonin Stl C. cayetanensis PCR Stool Rotavirus (PCR) Stool Adenovirus (PCR) Stool Astrovirus (PCR) Stool Cryptosporidium PCR Stl E.coli Shiga Tox PCR St Sh/Enteroin Ecoli PCR Stool E coli O157 PCR Stl Enterotoxigenic E PCR Stool EPEC (PCR) Stl E. histolytica PCR Stool Giardia Lamblia PCR Stool Sapovirus (PCR) Stl P. shigelloides PCR St Y.enterocolitica PCR Stool Vibrio (PCR) Stl Vibrio cholerae PCR Stl Enteroaggr Ecoli PCR Stl Norovirus GI/GII PCR Campylobacter (PCR) C. difficile Tox (PCR) Salmonella (PCR) 04/17/23 04/17/23 02:49 08:37 WBC RBC Hgb Hct MCV MCH MCHC RDW Plt Count Neut % (Auto) Lymph % (Auto) [place] % (Auto) Eos % (Auto) Baso % (Auto) Neut # (Auto) Lymph # (Auto) [place] # (Auto) Eos # (Auto) Baso # (Auto) Sodium Potassium Chloride Carbon Dioxide BUN Creatinine Estimated GFR BUN/Creatinine Ratio Glucose Lactate Calcium Total Bilirubin AST ALT Alkaline Phosphatase Total Protein Albumin Globulin Albumin/Globulin Ratio Lipase Procalcitonin 0.04 Stl C. cayetanensis PCR Not detected Stool Rotavirus (PCR) Not detected Stool Adenovirus (PCR) Not detected Stool Astrovirus (PCR) Not detected Stool Cryptosporidium PCR Not detected Stl E.coli Shiga Tox PCR Not detected St Sh/Enteroin Ecoli PCR Not detected Stool E coli O157 PCR Not Reportable Stl Enterotoxigenic E PCR Not detected Stool EPEC (PCR) Detected H Stl E. histolytica PCR Not detected Stool Giardia Lamblia PCR Not detected Stool Sapovirus (PCR) Not detected Stl P. shigelloides PCR Not detected St Y.enterocolitica PCR Not detected Stool Vibrio (PCR) Not detected Stl Vibrio cholerae PCR Not detected Stl Enteroaggr Ecoli PCR Not detected Stl Norovirus GI/GII PCR Not detected Campylobacter (PCR) Not detected C. difficile Tox (PCR) Not detected Salmonella (PCR) Not detected Assessment & Plan Assessment & Plan narrative: 1. Infectious colitis, enteropathogenic E coli Likely contracted when he was out to eat yesterday. He had acute onset with an hours. CT scan consistent with diffuse colitis. Stool studies positive for enteropathogenic E coli. At this time, there is no clear indication for antibiotics. Will continue supportive care with IV fluids, antiemetics, and pain medications as needed. Will start a clear liquid diet and advance as tolerated. Will place on contact precautions. 2. Leukocytosis Secondary to infectious colitis 3. Acute metabolic acidosis Secondary to GI losses. Will hydrate and monitor. 4. Acute metabolic encephalopathy Patient does seem mildly confused, perhaps a bit forgetful. However, he reorients quickly. He has been awake most of the night and has received multipl e doses of pain medications. Will monitor. Anticipate he will clear quickly. 5. Diabetes mellitus type [address] on fingersticks and sliding scale. 6. Hypertension Patient had severe hypertension earlier this morning, likely related to pain. Blood pressures have significantly improved with his most recent blood pressure being 138/60. Will resume his usual home medications. 7. Presumed ANIA Patient presents with a BUN elevated at 25, creatinine 1.26. Anticipate this will correct with hydration. 8. Chronic anticoagulation for history of atrial fibrillation status post ablation He is reportedly on Eliquis. Await medication reconciliation and restart once confirmed. 9. Distal esophageal thickening at the GE junction Should pursue EGD on an outpatient basis. 10. Enlarged prostate Noted on imaging. He does not endorse symptoms 11. Bilateral renal cortical cysts Unclear if this is known from baseline. It was noted on imaging Code status Full Prophylaxis Hepatoma score. Awaiting confirmation of chronic anticoagulation Disposition Admit under observation status. If patient is significantly improved by tomorrow, will likely be able to discharge home. Quality VTE Deep Vein Thrombosis/Pulmonary Embolism Present on Admission: No
[2023-04-17] MEDS: lisinopriL 20 MG TABLET 40 MG PO (14:27)
[2023-04-17] MEDS: carvediloL 12.5 MG TABLET PO ×2 (14:28→20:32)
[2023-04-17] MEDS: ATORVASTATIN 20 MG TABLET 10 MG PO (20:32)
[2023-04-17] MEDS: MELATONIN 3 MG TABLET PO (20:32)
[2023-04-18 05:10] LABS: BUN Creatinine Ratio 16.4 (6-22); Blood Urea Nitrogen 19 mg/dL (9-20); Calcium 7.6 mg/dL (8.4-10.2); Carbon Dioxide 22 mmol/L (22-32); Chloride 111 mmol/L (98-107); Estimated Glomerular Filt Rate > 60 mL/min (>60); Glucose 110 mg/dL (80-110); HEMOLYSIS < 15 (0-50); Potassium 3.6 mmol/L (3.4-5.1); Sodium 137 mmol/L (137-145)
[2023-04-18 05:19] LABS: Add Manual Diff / Slide Review NO; Basophils Absolute Auto 0 /uL (0-100); Basophils Percent Auto 0.4 % (0-2); Eosinophils Absolute Auto 400 /uL (0-450); Eosinophils Percent Auto 4.2 % (2-4); Hematocrit 32.3 % (41-53); Hemoglobin 11.1 g/dL (13.5-17.5); Lymphocytes Absolute Auto 1900 /uL (1100-4500); Lymphocytes Percent Auto 22.3 % (25-40); Mean Corpuscular HGB Conc 34.5 % (30-36); Mean Corpuscular Hemoglobin 28.6 PG (26-34); Mean Corpuscular Volume 82.7 fL (80-100); Monocytes Absolute Auto 800 /uL (0-900); Monocytes Percent Auto 9.6 % (3-14); Neutrophils Absolute Auto 5400 /uL (1500-7000); Neutrophils Percent Auto 63.5 % (50-75); Platelet Count 142 X10^3/uL (150-400); Red Cell Distribution Width 15.5 % (11.6-14.8); White Blood Cell Count 8.6 X10^3/uL (4.5-11.0)
[2023-04-18 06:00] VITALS: BP 164/53; PULSE 68; RESP 19; TEMP 36.5; O2SAT 98
[2023-04-18] MEDS: PANTOPRAZOLE DR 20 MG TABLET PO (06:10)
[2023-04-18 07:00] VITALS: O2SAT 96
--- NOTE | 2023-04-18 08:52 | PM.DS.1 ---
History of Present Illness History of Present Illness Chief complaint: Abd pain vomitting. Narrative: 78-year-old gentleman with hypertension, hyperlipidemia, diabetes mellitus type 2 on oral medications, history of atrial fibrillation with previous ablation on chronic anticoagulation who presented to the emergency department with acute onset of lower abdominal pain, nausea and vomiting.? Reports he is visiting from [place] and was out to breakfast and lunch both with a friend.? He states after breakfast he and his friend walked the beach and he felt fine.? They subsequently went for lunch and had burgers and fries.? He states he again felt fine until last evening when he developed acute onset of severe lower abdominal pain.? States whenever his abdomen cramped he had emesis.? Ultimately presented to the emergency department for further evaluation.? States he did not have any diarrhea until he got to the emergency department.? He states he had significant amounts of diarrhea after arrival.? Anytime he took in fluids, it seemed to trigger further diarrhea.? He had not noticed any blood in his stool.? He can not recall where he went to eat, but notes his has reached out to his friend to see if the friend is ill. In the emergency department, he received Zofran x2 doses, 1 L of normal saline, 1 L of lactated Ringer's, 2 doses of IV morphine 4 mg and 1 dose of Dilaudid 1 mg.? He additionally received IV Protonix 40 mg.? Earlier this morning, blood pressures were up to 233/104 which was felt to be secondary to pain.? Vital signs have otherwise been stable.? He has been afebrile.? White blood cell count was 13.8, hemoglobin 13.6, hematocrit 39.7, platelets 185.? Chemistry panel reveals sodium 140, potassium 4.2, chloride 109, bicarb 21, BUN 25, creatinine 1.26, glucose 170.? LFTs were within normal limits.? Lactate was normal at 1.2.? Lipase 104.? Procalcitonin 0.04.? Stool studies were positive for enteropathogenic E coli.? Abdominal pelvic CT revealed diffuse colitis involving the transverse colon, splenic flexure, descending and sigmoid colon.? No free air or abscess.? There was a small hiatal hernia.? Mild concentric thickening of the distal esophagus at the GE junction.? Recommendation for esophagram or EGD for follow-up.? Enlarged prostate was noted.? Bilateral renal cortical cysts without stones or hydronephrosis was noted Due to ongoing difficulties with pain and diarrhea, admission was recommended. Discharge Providers Provider Date of admission: 04/17/23 10:12 Discharge Date: 04/18/23 Primary care physician: Doctor Shonna MD Discharge provider: Sidney Rachel MD Summary Hospital Course Discharge Diagnosis: 1. Acute enteropathogenic E.coli gastroenteritis 2. Acute metabolic acidosis, resolved 3. Acute metabolic encephalopathy, resolved 4. ANIA due to acute dehydration, resolved 5. Distal esophageal thickening on CT 6. Bilateral renal cysts 7. Type 2 diabetes 8. Hypertension 9. Chronic anticoagulation for afib 10. Enlarged prostate noted on CT Hospital Course: Pt was admitted and managed conservatively. Following morning his symptoms are much better with considerable improvement in diarrhea frequency and volume. He had mild confusion which cleared up. He is not having any nausea or abdominal pain. Electrolytes are normal. He will f/u with PCP on CT finding of distal esophageal thickening (differential includes due to vomiting, silent reflux, malignancy). Status at Discharge Cognitive/behavioral status at discharge: oriented Functional status at discharge: independent ambulation Overall status at discharge: patient is progressing back to baseline Time Spent with Patient Time spent: Less than 30 minutes Exam Vital Signs (past 8 hours): - 04/18/23 06:00 04/18/23 07:00 Temperature 97.7 F Pulse Rate 68 Respiratory Rate 19 Blood Pressure 164/53 H Pulse Oximetry 98 96 Oxygen Delivery Method Room Air Oxygen Flow Rate 0 Oxygen Delivery Method Room Air Oxygen Flow Rate 0 Narrative Exam Narrative: Gen: alert, NAD Lungs: clear Abd: soft, nt Ext: no edema Neuro: nl speech and affect Objective Labs 04/18/23 04:23 04/18/23 04:23 Labs: Laboratory Results - last 24 hr 04/17/23 04/18/23 04/18/23 08:37 04:23 04:23 WBC 8.6 RBC 3.90 L Hgb 11.1 L Hct 32.3 L MCV 82.7 MCH 28.6 MCHC 34.5 RDW 15.5 H Plt Count 142 L Neut % (Auto) 63.5 Lymph % (Auto) 22.3 L [place] % (Auto) 9.6 Eos % (Auto) 4.2 H Baso % (Auto) 0.4 Neut # (Auto) 5400 Lymph # (Auto) 1900 [place] # (Auto) 800 Eos # (Auto) 400 Baso # (Auto) 0 Sodium 137 Potassium 3.6 Chloride 111 H Carbon Dioxide 22 BUN 19 Creatinine 1.16 Estimated GFR > 60 BUN/Creatinine Ratio 16.4 Glucose 110 Calcium 7.6 L Stl C. cayetanensis PCR Not detected Stool Rotavirus (PCR) Not detected Stool Adenovirus (PCR) Not detected Stool Astrovirus (PCR) Not detected Stool Cryptosporidium PCR Not detected Stl E.coli Shiga Tox PCR Not detected St Sh/Enteroin Ecoli PCR Not detected Stool E coli O157 PCR Not Reportable Stl Enterotoxigenic E PCR Not detected Stool EPEC (PCR) Detected H Stl E. histolytica PCR Not detected Stool Giardia Lamblia PCR Not detected Stool Sapovirus (PCR) Not detected Stl P. shigelloides PCR Not detected St Y.enterocolitica PCR Not detected Stool Vibrio (PCR) Not detected Stl Vibrio cholerae PCR Not detected Stl Enteroaggr Ecoli PCR Not detected Stl Norovirus GI/GII PCR Not detected Campylobacter (PCR) Not detected C. difficile Tox (PCR) Not detected Salmonella (PCR) Not detected PFS Social History household members: spouse Smoking Status: Never smoker alcohol intake: never Discharge Plan Discharge Plan Patient Disposition: Home Provider Discharge Comment: You were treated for E.coli gastroenteritis. Maintain bland diet (toast, white rice, apple sauce, bananas) until symptoms resolve. CT scan showed incidental findings of: -inflammation of colon due to infection -small hiatal hernia and distal esophageal thickening. You should consider getting an EGD (scope) for further evaluation. -cysts in kidneys which are benign -enlarged prostate Discharge orders & Medications Prescriptions: Continued melatonin 3 MG tablet 3 mg PO HS Qty: 0 ACETAMINOPHEN/DIPHENHYDRAMINE (Tylenol Pm Ex-Strength Gelcap) 1 cap PO PRN Qty: 0 hydrochlorothiazide 25 MG tablet 12.5 mg PO QDAY 90 Days Qty: 0 1RF simvastatin [Zocor] 20 MG tablet 20 mg PO HS Qty: 0 atenolol 50 MG tablet 50 mg PO Q DAY Qty: 0 lisinopril 40 MG tablet 40 mg PO QDAY Qty: 0 lorazepam [Ativan] 1 MG tablet 1 mg PO HSP Qty: 10 0RF carvedilol 12.5 mg tablet 12.5 mg PO BID Patient Comments: TAKE ONE TABLET BY MOUTH TWICE A DAY glimepiride 2 mg tablet 2 mg PO DAILY Follow up/Referrals: Xiang Garnt MD [Physician] - Doctor Kilpatrick MD [Primary Care Provider] - Diet/Activity/Treatments Diet: Diet as Tolerated Visit Report/Discharge Packet Instructions: DI for Bacterial Gastroenteritis -- Adult Stand Alone Forms: Patient Portal/API, Stroke Signs & Symptoms Discharge Data Primary Care Provider: Doctor Shonna Attending Provider: Amita Suarez Admit Date/Time: 04/17/23 10:12 Quality VTE Deep Vein Thrombosis/Pulmonary Embolism Present on Admission: No
[2023-04-18] MEDS: carvediloL 12.5 MG TABLET PO (09:11)
[2023-04-18] MEDS: lisinopriL 20 MG TABLET 40 MG PO (09:11)
[2023-04-18] MEDS: APIXABAN 5 MG TABLET PO (09:29)
[2023-04-18] MEDS: ATORVASTATIN 20 MG TABLET 10 MG PO (09:29)
--- NOTE | 2023-04-18 11:27 | CM.DANOTE ---
DCP: Case received, EMR reviewed and met with patient. Introduced self and role. Was able to obtain information regarding patient's baseline activity status prior to hospitalization. DCP assessment completed with information currently available. Patient is a 78 year old male who admitted yesterday morning to the care of the hospitalist team. PCP: Dr. Maddox (in [place]). Payer: confirmed: Medicare/[employer] and M[employer] Supplement. Patient came to the hospital via ambulance secondary to having abdominal pain, as well as vomiting. Patient resides in [place], and was here for the last couple days ago visiting friends. Patient used to live in this area. Patient was diagnosed with infectious colitis. Met with patient in his room. He was laying in bed, alert and oriented. Confirmed that he does reside with spouse, Ana in [place], they have resided there in the last 14 years, prior, had been in this area. Patient is independent at his baseline. P: Patient has discharge orders for home today. Heidi Carmen RN/Leak Inspector Discharge Planning/Care Management CM Discharge Assessment Start: 04/18/23 11:26 Freq: Status: Active Protocol: Document 04/18/23 11:26 (Rec: 04/18/23 11:27 [id number]) Discharge Planning Assessment Assigned Unarmed Security Guard Heidi Carmen RN/Leak Inspector Advance Directives? No History Provided By Patient,Medical Record Prior Living Arrangements House Household Members spouse Type of transporation used prior to Drives own vehicle admit Independent with ADL's Yes Is patient alert and oriented? Yes Caregiver for Another No Barriers to Discharge No Discharge Plan Home Transportation Arrangement Spouse Referrals Initiated None needed Whiteboard Updated in Patient Room with Yes name and ext. # of Unarmed Security Guard Review Status In Process Next Review Type Continued Stay Review
== END 2023-04-18 11:50 | disposition home or self-care (01) ==
LOC: ED 09:27 → AC 10:14
PROVIDERS: Emergency Medicine; Admitting Provider Family Medicine; Emergency Provider Emergency Medicine; Referring Provider Emergency Medicine; Visit Provider Family Medicine
DX: A04.4 Other intestinal Escherichia coli infections (principal); R11.10 Vomiting, unspecified; E11.9 Type 2 diabetes mellitus without complications; I10 Essential (primary) hypertension; Z79.01 Long term (current) use of anticoagulants; R93.3 Abnormal findings on diagnostic imaging of other parts of digestive tract; R93.89 Abnormal findings on diagnostic imaging of other specified body structures; E86.0 Dehydration; Z79.84 Long term (current) use of oral hypoglycemic drugs
CPT/HCPCS: 36415; 74177; 80048; 80053; 81003; 82962; 83605; 83690; 84145; 85025; 87507; 93005; 96361; 96374; 96375; 96376; 99284; G0378; C9113; J1170; J2270; J2405; Q9967